=== PATIENT | female | born 1950 | race Caucasian/White ===

== ENCOUNTER → 2016-08-10 | Outpatient (CLI) | payer OTHER | LOC: CIMAGING 14:16 | PROVIDERS: ATTEND Internal Medicine Critical Care Medicine | DX: J47.9 Bronchiectasis, uncomplicated (principal); R91.1 Solitary pulmonary nodule | CPT/HCPCS: 71250-PO ==

== ENCOUNTER 2016-10-01 12:59 | Day surgery (SDC) | payer OTHER ==
[2016-10-01] MEDS ORDERED: MIDAZOLAM 2 MG/2 ML VIAL ONE (13:16)
[2016-10-01] MEDS ORDERED: LIDOCAINE 1% 300 MG/30 ML SDV ONE (13:17)
[2016-10-01] MEDS ORDERED: fentaNYL 100 MCG/2 ML INJ ONE (13:17)
[2016-10-01] MEDS ORDERED: EPINEPHrine 1 MG/10 ML SYR IVP ONE (13:18)
[2016-10-01] MEDS ORDERED: LIDOCAINE 2% JELLY 5 ML TUBE ONE (13:19)
[2016-10-01] MEDS ORDERED: ALBUTEROL 3 ML DEYVIAL ONE (13:19)
--- NOTE | 2016-10-01 13:50 | PDHPUP ---
History & Physical Update H&P update statement: This history and physical update is based on an assessment of the patient which was completed after admission or registration (within 24 hours), but prior to the surgery/procedure. H&P update: H&P reviewed & patient examined, no change in patient's condition since H&P completed
--- NOTE | 2016-10-01 13:51 | PDPROPOC ---
Sedation Plan of Care ASA Classification: ASA 2 Mallampati Score: Class 2
[2016-10-01 14:17] VITALS: PULSE 80; TEMP 98.2
[2016-10-01 15:07] VITALS: RESP 15; O2SAT 94
[2016-10-01 15:21] VITALS: BP 152/85
--- NOTE | 2016-11-09 12:44 | GPN ---
[f rep st] PROCEDURE NOTE DATE OF PROCEDURE: 10/01/2016 PROCEDURE: Bronchoalveolar lavage. INDICATION: Bronchiectasis. CONSENT: Informed consent was obtained from the patient prior to the administration of anesthesia. The risks and benefits of both procedure and conscious sedation were explained in detail. MEDICATIONS: Conscious sedation was achieved using Versed and fentanyl. The patient tolerated these well without complications. PROCEDURE IN DETAIL: After application of topical lidocaine, bronchoscope was easily passed through the mouth, into the trachea, which appeared to be relatively normal. Attention was taken to the righ t lower lobe where bronchiectasis was seen on a CT scan. 3 aliquots of 40 cc of normal saline were i nstilled. An approximate 50% return of clear, cloudy fluid but no bleeding. Overall patient tolerat ed procedure well and there were no complications. /[id number]/MODL
== END 2016-10-01 15:30 | disposition home or self-care (01) ==
LOC: FSGY 12:59
PROVIDERS: ATTEND Internal Medicine Critical Care Medicine
PROC: 0B968ZX Drainage of Right Lower Lobe Bronchus, Via Natural or Artificial Opening Endoscopic, Diagnostic (ICD-10-PCS; principal; 2016-10-01 14:00)
DX: J47.9 Bronchiectasis, uncomplicated (principal)
CPT/HCPCS: 87188-90; 87556-90; J2250; J3010

== ENCOUNTER → 2017-10-04 | Outpatient (CLI) | payer OTHER | LOC: FIMAGING 14:51 | PROVIDERS: ATTEND Internal Medicine Infectious Disease | DX: A31.0 Pulmonary mycobacterial infection (principal); J47.9 Bronchiectasis, uncomplicated ==

== ENCOUNTER 2017-10-20 13:21 | Day surgery (SDC) | payer OTHER ==
--- NOTE | 2017-10-20 11:54 | PDPROPOC ---
Sedation Plan of Care Sedation Plan of Care: vital signs stable, mental status noted, patient educated of risks, benefits, alternatives, patient can tolerate sedation ASA Classification: ASA 2 Planned drugs: fentanyl, midazolam Mallampati Score: Class 2 Mallampati Reference Image:
[2017-10-20] MEDS ORDERED: ALBUTEROL 3 ML DEYVIAL ONE (13:29)
[2017-10-20] MEDS ORDERED: LIDOCAINE 2% JELLY 5 ML TUBE ONE (13:29)
[2017-10-20] MEDS ORDERED: LIDOCAINE 1% 300 MG/30 ML SDV ONE (13:30)
[2017-10-20] MEDS ORDERED: EPINEPHrine 1 MG/ML INJ ONE (13:31)
[2017-10-20] MEDS ORDERED: fentaNYL 100 MCG/2 ML INJ ONE (13:32)
[2017-10-20] MEDS ORDERED: MIDAZOLAM 2 MG/2 ML VIAL ONE (13:32)
[2017-10-20] MEDS ORDERED: NS 500 ML IV ONE (13:41)
[2017-10-20] MEDS ORDERED: LIDOCAINE 1% 2 ML INJ ID PRN (13:41)
--- NOTE | 2017-10-20 15:25 | BVPULMO ---
[facility] Surgical Services- Pulmonology Patient Name: Alexus Gale Procedure Date: 10/20/2017 2:56 PM Patient Type: Outpatient Attending MD/ER Physician: Rome Jacobo MD Procedure: Bronchoscopy Indications: Diagnostic bronchoalveolar lavage Providers: Rome Jacobo MD Medicines: Lidocaine 4% via nebulizer with Albuterol 2.5 mg, Lidocaine 1% applied to cords 2 mL, Fentanyl 50 mcg IV, Midazolam 3 mg mg IV Complications: No immediate complications Procedure: After informed consent, a time out was performed. N95 masks were worn, and the procedure was done in a negative pressure room. The patient was given appropria te topical anesthesia and intravenous sedation. The fiberopic bronchoscope was pas sed via a bite block orally into the larynx and subsequently into the lower trachea bronchial tree. Throughout the procedure, the patient's blood pressure, pulse, and oxygen saturations were monitored continuously. The Bronchoscope was introduced through the mouth and advanced to the tracheobronchial tree of both lungs. The procedure was accomplished without difficulty. The patient tolerated the proced ure well. Findings: Specific locations: The following were directly visualized, and are normal: lar ynx, vocal cord motion, trachea, eva, left mainstem bronchus, right mainstem bron chus, bronchus intermedius, left upper lobe including subsegments,left lower lobe including subsegments, right upper lobe including subsegments, right middle lob e including subsegments, right lower lober including subsegments. Bronchoalveolar lavage was performed in the RML medial segment (B5) of the lung and sent for AFB analysis & culture. 120 mL of fluid were instilled. 50 mL were returned. The return was cloudy. There were no mucoid plugs in the return fluid . Washings were obtained in the right middle lobe and sent for AFB analysis & cul ture. The return was clear. Post Op Diagnosis: - Bronchoalveolar lavage - Bronchoalveolar lavage was performed. - Washings were obtained. - The airway examination was normal. Estimated Blood Loss: Estimated blood loss: none. Recommendation: - The patient will be observed post-procedure, until all discharge criteria are met. - The patient was advised to call or return to the clinic if there are signs or symptoms suggesting a complication/adverse reaction from the procedure. Rome Jacobo MD Rome Jacobo MD 10/20/2017 3:25:32 PM This report has been signed electronicallyRome Jacobo MD Number of Addenda: 0 Note Initiated On: 10/20/2017 2:56 PM [email or web address]
--- NOTE | 2017-10-20 15:40 | GHP ---
DATE OF ADMISSION: 10/20/2017 HISTORY OF PRESENT ILLNESS: This patient is a 67-year-old female who was previously followed by Dr. Nava for mild bronchiectasis who had presented to me in July of 2016 with a recent upper respirator y infection. A CT scan revealed increasing bronchiectasis in the right middle lobe and underwent bro nchoscopy in September. 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 Murry with azithromycin, ethambutol and rifampin. She has had improvement in symptoms a nd does have some chronic cough still ongoing, and had a recent CT scan that showed some mild improve ment. She has otherwise been relatively stable and remains on her medication therapy, and presented today for repeat bronchoscopy. REVIEW OF SYSTEMS: Otherwise negative. PAST MEDICAL HISTORY: 1. Bronchiectasis. 2. Mycobacterium bacterium avium complex. 3. Hypertension. 4. Osteoporosis. 5. Patent foramina ovale. PAST SURGICAL HISTORY: 1. Breast augmentation. 2. Rotator cuff. MEDICATIONS: 1. Acyclovir. 2. Aspirin. 3. Azithromycin. 4. Calcium. 5. Ethambutol. 6. Fish oil. 7. Flaxseed. 8. Lisinopril. 9. Rifampin. 10. Ventolin p.r.n. ALLERGIES: Amoxicillin. FAMILY HISTORY: Noncontributory. SOCIAL HISTORY: She drinks mild amount of alcohol, is a remote smoker, but nothing recent. PHYSICAL EXAM: VITAL SIGNS: She was afebrile. Blood pressure was 148/97, heart rate 71, respiratio ns 18, oxygen saturation 99% on room air. She is thin, pleasant woman in no apparent distress. Able to speak in full sentences without using accessory muscles for breathing. HEENT: Pupils equally ro und and reactive to light. Nonicteric and noninjected. Mucous membranes moist without erythema or e xudate. CHEST: Breath sounds are clear to auscultation bilaterally. HEART: Regular rate and rhyth m. ABDOMEN: Soft, nontender, nondistended. EXTREMITIES: Show no clubbing, cyanosis, or edema. NE UROLOGIC: Nonfocal, including cranial nerves, deep tendon reflexes. OBJECTIVE DATA: CT scan as reported above. ASSESSMENT/PLAN: Mycobacterium avium complex with mild to moderate bronchiectasis and hot tub exposu re. She seems to be doing relatively well. The bronchoscopy is intended for surveillance purposes a nd potentially impact on ongoing therapy. She is quite stable for the procedure and will proceed as planned. /[id number]/MODL
[2017-10-20 16:05] VITALS: BP 120/67
== END 2017-10-20 16:19 | disposition home or self-care (01) ==
LOC: FSGY 13:21
PROVIDERS: ATTEND Internal Medicine Critical Care Medicine
PROC: 0B958ZX Drainage of Right Middle Lobe Bronchus, Via Natural or Artificial Opening Endoscopic, Diagnostic (ICD-10-PCS; principal; 2017-10-20 14:30)
DX: J47.9 Bronchiectasis, uncomplicated (principal); I10 Essential (primary) hypertension
CPT/HCPCS: J0171; J2250; J3010; J7613

== ENCOUNTER → 2018-05-24 | Outpatient (CLI) | payer OTHER | LOC: BHFA 13:00 | PROVIDERS: ATTEND Internal Medicine Cardiovascular Disease | DX: R07.9 Chest pain, unspecified (principal); R00.2 Palpitations | CPT/HCPCS: 78452; 93017; A9500 ==

== ENCOUNTER → 2018-05-31 | Outpatient (CLI) | payer OTHER | LOC: BHFA 13:30 | PROVIDERS: ATTEND Internal Medicine Cardiovascular Disease | DX: R07.9 Chest pain, unspecified (principal); R00.2 Palpitations ==

== ENCOUNTER → 2018-06-02 | Outpatient (CLI) | payer OTHER | LOC: BHFA 14:45 | PROVIDERS: ATTEND Internal Medicine Cardiovascular Disease | DX: R00.2 Palpitations (principal) ==

== ENCOUNTER → 2018-07-01 | Outpatient (CLI) | payer OTHER | LOC: FIMAGING 14:31 | PROVIDERS: ATTEND Orthopaedic Surgery | DX: Z01.818 Encounter for other preprocedural examination (principal); M16.12 Unilateral primary osteoarthritis, left hip ==

== ENCOUNTER 2018-07-28 05:49 | Inpatient (IN) | payer OTHER | END 2018-07-29 12:07 | disposition home or self-care (01) | LOC: F3N 05:49 ==